=== PATIENT | female | born 1950 | race Caucasian/White ===

== ENCOUNTER 2021-01-18 08:52 | Emergency (ER) | payer BC ==
[2021-01-18 10:43] LABS: HEMOGLOBIN 14.6 gm/dl (12.3-15.3); RED BLOOD COUNT 4.47 M/UL (4.00-5.10); WHITE BLOOD COUNT 18.9 K/UL (4.5-11.0)
[2021-01-18 11:10] LABS: BUN/CREATININE RATIO 27 (0-10)
[2021-01-18] MEDS ORDERED: ZOFRAN ODT 4 MG4 MG SL (20:24)
== END 2021-01-18 18:45 | disposition home or self-care (01) ==
LOC: ER1 08:52
PROVIDERS: Physician Assistant
DX: R41.0 Disorientation, unspecified (principal); R19.7 Diarrhea, unspecified; Z86.16 Personal history of COVID-19
CPT/HCPCS: 70450; 71045; 80053; 81001; 82550; 82553; 83605; 83874; 84484; 85025; 87040; 93005; 99285; Q9967